=== PATIENT | female | born 2000 | race African-American/Black ===

== ENCOUNTER 2020-08-27 21:16 | Emergency (ER) | payer OTHER ==
[2020-08-27 21:25] VITALS: BP 106/71; PULSE 81; TEMP 98.8; BMI 25.1
== END 2020-08-27 23:41 | disposition home or self-care (01) ==
LOC: JER 21:16
DX: G44.319 Acute post-traumatic headache, not intractable (principal)
CPT/HCPCS: 99281-25

== ENCOUNTER 2024-05-02 23:26 | Emergency (ER) | payer OTHER ==
[2024-05-02 23:42] VITALS: BP 119/97; PULSE 84; RESP 20; TEMP 98; BMI 28.3
[2024-05-03] MEDS ORDERED: DIPHTH,PERTUSS(ACELL),TET 0.5 ML DISP.SYRIN IM ONE (00:03)
[2024-05-03] MEDS: DIPHTH,PERTUSS(ACELL),TET 0.5 ML DISP.SYRIN IM ONE (00:07)
[2024-05-03 01:41] LABS: HIV INTERPRETATION NEGATIVE (NEGATIVE)
== END 2024-05-03 00:27 | disposition home or self-care (01) ==
LOC: JER 23:26
PROC: 3E0234Z Introduction of Serum, Toxoid and Vaccine into Muscle, Percutaneous Approach (ICD-10-PCS; principal; 2024-05-02)
DX: M79.644 Pain in right finger(s) (principal); M79.645 Pain in left finger(s); Z23 Encounter for immunization; W00.0XXA Fall on same level due to ice and snow, initial encounter
CPT/HCPCS: 36415; 86803; 87389; 90471; 90715; 99284-25